=== PATIENT | female | born 1965 | race Caucasian/White ===

== ENCOUNTER 2016-08-09 10:11 | Emergency (ER) | payer OTHER ==
--- NOTE | 2016-08-09 13:00 | ED ANIMAL BITE/WOUND CHECK ---
History of Present Illness General Chief Complaint: Animal/Insect Bite Stated Complaint: ANIMAL BITE Source: patient Exam Limitations: no limitations Vital Signs & Intake/Output Vital Signs & Intake/Output Vital Signs Date Time Temp Pulse Resp B/P Pulse O2 O2 Flow FiO2 Ox Delivery Rate 08/09 1431 98.2 84 18 131/86 99 Room Air Room Air 08/09 1033 98.0 108 20 139/90 99 Room Air Allergies Coded Allergies: Sulfa (Sulfonamide Antibiotics) (Mild, HIVES 08/09/16) Triage Note: PT PRESENTS TO ER C/O OF A CAT BITE TO RIGHT WRIST. PT STATES SHE WAS TRYING TO HELP A STRAY CAT AND WAS BIT. Triage Nurses Notes Reviewed? yes Injury Environment: home Is Injury an Animal Bite? Yes Animal Type: cat Context of Animal Attack: approached animal Appearance of Animal: unknown Animal Immunization Status: unknown Observation/Capture: not captured Severity of Attack: bitten Severity: mild HPI: Patient is a 51-year-old female who presents emergency room stating that this morning while approaching a stray cat she was bit to the right wrist by an unknown And which she suffered a puncture wound in which bleeding was controlled prior to arrival. Patient has mild pain in surrounding erythema to the bite site. Patient's never received rabies vaccine. Tetanus is up-to-date. Denies any fevers Past History Travel History Traveled to [place] past 21 day No Medical History Any Pertinent Medical History? 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 No Review of Systems Review of Systems Constitutional: Reports: no symptoms. EENTM: Reports: no symptoms. Respiratory: Reports: no symptoms. Cardiovascular: Reports: no symptoms. GI: Reports: no symptoms. Genitourinary: Reports: no symptoms. Musculoskeletal: Reports: no symptoms. Skin: Reports: see HPI, erythema. Neurological/Psychological: Reports: no symptoms. Hematologic/Endocrine: Reports: no symptoms. Immunologic/Allergic: Reports: no symptoms. All Other Systems: Reviewed and Negative Physical Exam Physical Exam General Appearance: well developed/nourished, no apparent distress, comfortable Comments: Well-developed well-nourished no apparent distress. HEENT: Atraumatic, extraocular motion intact Neck: Supple, no lymphadenopathy Back: Nontender Respiratory: No respiratory distress Extremities: Neuro: Alert and oriented x3 Psych: Mood affect normal, normal memory normal judgment. Diagram Hands, Dorsum: 1) 5 mm in diameter erythematous minimal puncture wound noted with no active bleeding full active range of motion noted in wrist flexion wrist extension and radial deviation ulnar deviation, no active bleeding, no swelling Progress Differential Diagnosis: abscess, cellulitis, joint infection, tenosysnovitis Plan of Care: Current Medications Sig/Ede Start time Last Medication Dose Stop Time Status Admin Rabies Immune 2,000 UNITS ONCE ONE 08/09 1329 UNVr Globulin 08/09 1330 (Rabies Immune Globlulin Inj) Rabies Vaccine 1 SYR ONCE ONE 08/09 1329 UNVr (Rabies (Vaccine) 08/09 1330 Inj (1ML)) Surgical pen markings bordered the erythematous skin bite. Wound was cleaned with peroxide and water bacitracin and bandage was applied. Patient was updated on rabies vaccine and immunoglobin patient was artery updated on tetanus. Patient was strongly advised to adhere to discharge instructions and she will comply. (KAVEH ELLSWORTH) Departure Departure Disposition: HOME OR SELF CARE Condition: Stable Clinical Impression Primary Impression: Cat bite of right wrist Referrals: LEAH VILLAGRAN,GUZMAN Roman (PCP/Family) Additional Instructions: As discussed you have received your first dose of rabies vaccine, today is day 0. Return to the emergency room on day 3, day 7, day 14. Please begin the prescription of Augmentin as directed for the full course, this prescription is waiting at [facility]. Begin [id number] ibuprofen for pain and inflammation. If you note signs Departure Forms: Customer Survey General Discharge Information
[2016-08-09 14:31] VITALS: BP 131/86
== END 2016-08-09 14:32 ==
LOC: ERH 10:11
DX: S61.551A Open bite of right wrist, initial encounter (principal); W55.01XA Bitten by cat, initial encounter
CPT/HCPCS: 90376; 90471; 96372

== ENCOUNTER 2016-08-12 10:32 | Emergency (ER) | payer OTHER ==
[~2016-08-12] VITALS: Ht 154.9 cm; Wt 99.1 kg
--- NOTE | 2016-08-12 10:39 | ED GENERAL ADULT ---
History of Present Illness General Chief Complaint: General Adult Stated Complaint: SECOND RABIES SHOT Source: patient Exam Limitations: no limitations Vital Signs & Intake/Output Vital Signs & Intake/Output ED Intake and Output 08/13 0000 08/12 1200 Intake Total Output Total Balance Patient 218 lb Weight Allergies Coded Allergies: Sulfa (Sulfonamide Antibiotics) (Mild, HIVES 08/09/16) Reconcile Medications Amoxicillin/Clavulanate Potass (Amox-Clav 875-125 MG Tablet) 875 MG-125 MG TABLET 1 TAB PO BID ANTIBIOTIC, INFECTION (Reported) Levothyroxine Sodium (Synthroid) 137 MCG TABLET 1 TAB PO DAILY AC THYROID ( Reported) Liothyronine Sodium 5 MCG TABLET 1 TAB PO DAILY THYROID (Reported) Metformin HCl (Metformin HCl ER) 500 MG TAB.ER.24H 1 TAB PO QPM POLY ( Reported) Sertraline HCl 100 MG TABLET 1 TAB PO DAILY DEPRESSION (Reported) Triage Nurses Notes Reviewed? yes Onset: Abrupt Duration: day(s):, constant Timing: recent history No Modifying Factors: none HPI: 51-year-old female comes into emergency room for second rabies vaccine. Patient had been bitten by a stray cat on her right wrist. Patient has no redness or swelling or discharge. Patient denies any other associated symptoms. Patient is just here for second rabies vaccine. no pain. (MARCELA NEWELL) Past History Travel History Traveled to [place] past 21 day No Medical History Any Pertinent Medical History? 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 No (MARCELA NEWELL) Review of Systems Review of Systems Constitutional: Reports: no symptoms. EENTM: Reports: no symptoms. Respiratory: Reports: no symptoms. Cardiovascular: Reports: no symptoms. GI: Reports: no symptoms. Genitourinary: Reports: no symptoms. Musculoskeletal: Reports: no symptoms. Skin: Reports: no symptoms. Neurological/Psychological: Reports: no symptoms. Hematologic/Endocrine: Reports: no symptoms. Immunologic/Allergic: Reports: no symptoms. All Other Systems: Reviewed and Negative (MARCELA NEWELL) Physical Exam Physical Exam General Appearance: well developed/nourished, no apparent distress, alert Head: atraumatic, normal appearance Eyes: Bilateral: normal appearance. Ears, Nose, Throat: normal ENT inspection, hearing grossly normal Neck: normal inspection Respiratory: no respiratory distress Gastrointestinal: soft Back: normal inspection Extremities: normal inspection Neurologic/Psych: awake, alert Skin: intact, normal color Core Measures ACS in differential dx? No CVA/TIA Diagnosis: No Severe Sepsis Present: No Septic Shock Present: No (MARCELA NEWELL) Progress Differential Diagnoses I considered the following diagnoses in my evaluation of the patient: Rabies vaccine, cellulitis, sepsis, abscess, Plan of Care: Current Medications Sig/Ede Start time Last Medication Dose Stop Time Status Admin Rabies Vaccine 1 SYR ONCE ONE 08/12 1045 UNVr (Rabies (Vaccine) 08/12 1046 Inj (1ML)) Initial ED EKG: none (MARCELA NEWELL) Departure Departure Disposition: HOME OR SELF CARE Condition: Stable Clinical Impression Primary Impression: Rabies exposure Referrals: LEAH VILLAGRAN,GUZMAN Roman (PCP/Family) Additional Instructions: Return as previously instructed. Return if any other concerns worsening symptoms. Please go over all results of today's visit with your primary care doctor. Contact your primary care doctor to let them know you were here in the emergency room. There may be nonspecific findings which may not be related to your visit today here in the emergency room but may require further evaluation and chronic monitoring by your primary care doctor. If you had a laceration today the chance of foreign body always remains. You should follow-up with your primary care doctor for recheck in 3-5 days for a wound check. If you had an x-ray done there is a chance that a fracture could have been missed on initial read and you should follow-up with your primary care doctor for repeat x-rays if symptoms persist. If your blood pressure was elevated here in the emergency room please have rechecked by her primary care doctor within the next 48 hours by your primary care doctor. If you were prescribed a narcotic here in the emergency room or any type of controlled substances you're not allowed to drive while taking this medication or operate any type of heavy machinery. Narcotics can make you feel lightheaded dizziness nausea and can cause constipation. You may need to picking crew supervisor a stool softener. Thank you for choosing [facility] emergency room. Please return to the emergency room immediately if you have any other concerns worsening of symptoms. Departure Forms: Customer Survey General Discharge Information (MARCELA NEWELL) PA/SENIOR DIGITAL DESIGNER Co-Sign Statement Statement: ED Attending supervision documentation- [] I saw and evaluated the patient. I have also reviewed all the pertinent lab results and diagnostic results. I agree with the findings and the plan of care as documented in the PA's/SENIOR DIGITAL DESIGNER's documentation. [X] I have reviewed the ED Record and agree with the PA's/SENIOR DIGITAL DESIGNER's documentation. [] Additions or exceptions (if any) to the PAs/SENIOR DIGITAL DESIGNER's note and plan are summarized below: [] (ARIELLA VILLAGRAN,JONI) Critical Care Note Critical Care Note Critical Care Time: non-applicable (MARCELA NEWELL)
[2016-08-12 10:41] VITALS: BP 143/83
[2016-08-12] MEDS ORDERED: AMOX-CLAV 875-1 EACH PO (10:42)
[2016-08-12] MEDS ORDERED: METFORMIN HCL500 M4 PO (10:42)
[2016-08-12] MEDS ORDERED: SYNTHROID137 MCG PO (10:42)
[2016-08-12] MEDS ORDERED: SERTRALINE HCL100 MG PO (10:42)
[2016-08-12] MEDS ORDERED: LIOTHYRONINE SO5 MC1 PO (10:43)
== END 2016-08-12 10:52 ==
LOC: ERH 10:32
DX: Z23 Encounter for immunization (principal)
CPT/HCPCS: 90471; 99281

== ENCOUNTER 2016-08-16 11:02 | Emergency (ER) | payer OTHER ==
[~2016-08-16] VITALS: Ht 157.5 cm; Wt 99.8 kg
[~2016-08-16 11:02] MED LIST: AMOX-CLAV 875-1 EACH PO; LIOTHYRONINE SO5 MC1 PO; METFORMIN HCL500 M4 PO; SERTRALINE HCL100 MG PO; SYNTHROID137 MCG PO
[2016-08-16 11:09] VITALS: BP 132/82
--- NOTE | 2016-08-16 12:00 | ED ANIMAL BITE/WOUND CHECK ---
History of Present Illness General Chief Complaint: General Adult Stated Complaint: "HERE FOR MY 3RD RABIES SHOT" Source: patient, old records Exam Limitations: no limitations Vital Signs & Intake/Output Vital Signs & Intake/Output Vital Signs Date Time Temp Pulse Resp B/P Pulse O2 O2 Flow FiO2 Ox Delivery Rate 08/16 1109 97.4 84 18 132/82 98 Room Air Allergies Coded Allergies: Sulfa (Sulfonamide Antibiotics) (Mild, HIVES 08/09/16) Reconcile Medications Amoxicillin/Clavulanate Potass (Amox-Clav 875-125 MG Tablet) 875 MG-125 MG TABLET 1 TAB PO BID ANTIBIOTIC, INFECTION (Reported) Levothyroxine Sodium (Synthroid) 137 MCG TABLET 1 TAB PO DAILY AC THYROID ( Reported) Liothyronine Sodium 5 MCG TABLET 1 TAB PO DAILY THYROID (Reported) Metformin HCl (Metformin HCl ER) 500 MG TAB.ER.24H 1 TAB PO QPM POLY ( Reported) Sertraline HCl 100 MG TABLET 1 TAB PO DAILY DEPRESSION (Reported) Triage Note: HERE FOR 3 RD RABIES SHOT Triage Nurses Notes Reviewed? yes Onset: Abrupt Duration: week(s): (1), better Timing: remote history Injury Environment: home Is Injury an Animal Bite? Yes Severity: mild Severity Numbers: 1 No Modifying Factors: none Associated Symptoms: DENIES HPI: 51-year-old female presents emergency room for evaluation for her third rabies vaccination after she was bit by a stray cat and was seen here one week ago. Patient denies any rashes redness warmth or pain to the wrist. She denies any fevers or chills she is otherwise without any complaints and there are no modifying factors or associated symptoms otherwise. Past History Travel History Traveled to [place] past 21 day No Medical History Any Pertinent Medical History? 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 No Review of Systems Review of Systems Constitutional: Reports: see HPI. All Other Systems: Reviewed and Negative Comments Review of systems: See HPI, All other systems negative. Constitutional, no chills no fever, no malaise HEENT: No visual changes no sore throat no congestion, Cardiovascular: No chest pain , no palpitation Skin,no rashes, no change in skin Respiratory: No dyspnea no cough no sputum GI: No nausea no vomiting, no diarrhea, : No dysuria Muscle skeletal: No joint pain, no back pain, no neck pain, Neurologic: No numbness, no headache Psych: No stress Heme/endocrine: No bruising no bleeding Immunology: No lymphadenopathy Physical Exam Physical Exam General Appearance: well developed/nourished, no apparent distress, alert, awake , comfortable Comments: Well-developed well-nourished patient in no apparent distress. HEENT: Atraumatic, extraocular motion intact Neck: Supple, FROM, Back: FROM, Cardiovascular: Regular rate and rhythms no murmurs Respiratory: No respiratory distress. Patient speaking in full complete sentences. Breath sounds clear to auscultation bilaterally: NO W/R/R Extremities: full range of motion Neuro: Alert and oriented x3 Skin: Warm & dry;No appreciable rash on exposed skin, no rash or tenderness noted to the bilateral upper extremities Psych: Mood affect normal, normal memory normal judgment. Progress Differential Diagnosis: cellulitis Plan of Care: Patient appears well. She will follow up for her final rabies vaccination next week she will return anytime sooner if any concerns. Departure Departure Time of Disposition: 1201 Disposition: HOME OR SELF CARE Condition: Stable Clinical Impression Primary Impression: Rabies, need for prophylactic vaccination against Referrals: LEAH VILLAGRAN,GUZMAN Roman (PCP/Family) Additional Instructions: FOLLOW UP NEXT WEEK SCHEDULED. RETURN WITH ANY CONCERNS. Departure Forms: Customer Survey General Discharge Information
== END 2016-08-16 12:04 ==
LOC: ERH 11:02
DX: Z23 Encounter for immunization (principal)
CPT/HCPCS: 90471; 99281

== ENCOUNTER 2016-08-19 17:04 | Emergency (ER) | payer OTHER ==
[~2016-08-19] VITALS: Ht 157.5 cm; Wt 99.8 kg
--- NOTE | 2016-08-19 17:59 | ED GI/GU/ABDOMINAL COMPLAINT ---
History of Present Illness General Chief Complaint: General Adult Stated Complaint: SIB G.I R/O C-DIFF Source: patient Exam Limitations: no limitations Vital Signs & Intake/Output Vital Signs & Intake/Output Vital Signs Date Time Temp Pulse Resp B/P Pulse O2 O2 Flow FiO2 Ox Delivery Rate 08/19 1940 98.5 70 20 136/69 99 Room Air 08/19 190 Room Air 08/19 1707 98.8 78 20 138/84 98 Room Air Allergies Coded Allergies: gluten (Intermediate, GI UPSET 08/19/16) lactase (From DAIRY AID) (Intermediate, GI UPSET 08/19/16) Sulfa (Sulfonamide Antibiotics) (Mild, HIVES 08/19/16) amoxicillin (From AUGMENTIN) (SHOOTING BLOODY DIARRHEA 08/19/16) clavulanic acid (From AUGMENTIN) (SHOOTING BLOODY DIARRHEA 08/19/16) Reconcile Medications Amoxicillin/Clavulanate Potass (Amox-Clav 875-125 MG Tablet) 875 MG-125 MG TABLET 1 TAB PO BID ANTIBIOTIC, INFECTION (Reported) Levothyroxine Sodium (Synthroid) 137 MCG TABLET 1 TAB PO DAILY AC THYROID ( Reported) Liothyronine Sodium 5 MCG TABLET 1 TAB PO DAILY THYROID (Reported) Metformin HCl (Metformin HCl ER) 500 MG TAB.ER.24H 1 TAB PO QPM POLY ( Reported) Sertraline HCl 100 MG TABLET 1 TAB PO DAILY DEPRESSION (Reported) Triage Note: TRIAGE: PT TO ER C/C BLOODY DIARRHEA WITH MUCOUS SINCE THIS MORNING. HAS BEEN ON ABX S/P CAT BITE. HAS BEEN HERE 3 X FOR SAME FOR RABIES SHOTS WELL. STATES PMD SENT HER TO ER TO R/O CDIF. Triage Nurses Notes Reviewed? yes ? N Is pt currently ? No HPI: Patient presents for evaluation of multiple episodes of bloody diarrhea after a course of Augmentin for prophylaxis of a cat bite. Patient states initially she began having loose bowel movements a few days ago but this morning had an abrupt onset of frequent bloody bowel movements with mucus. She is also experiencing a lower cramping abdominal pain but denies any associated fever. (HAM VILLAGRAN,BRANDON Ponce) Past History Travel History Traveled to [place] past 21 day No Medical History Any Pertinent Medical History? 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 No (HAM VILLAGRAN,BRANDON Ponce) Review of Systems Review of Systems Constitutional: Reports: no symptoms. EENTM: Reports: no symptoms. Respiratory: Reports: no symptoms. Cardiovascular: Reports: no symptoms. GI: Reports: see HPI. Genitourinary: Reports: no symptoms. Musculoskeletal: Reports: no symptoms. Skin: Reports: no symptoms. Neurological/Psychological: Reports: no symptoms. Hematologic/Endocrine: Reports: no symptoms. Immunologic/Allergic: Reports: no symptoms. All Other Systems: Reviewed and Negative (HAM VILLAGRAN,BRANDON Ponce) Physical Exam Physical Exam Gastrointestinal: see below Comments: Gen.: Well-nourished, well-developed, no acute respiratory distress. Head: Normocephalic, atraumatic. Eyes: Normal inspection bilaterally Ears: Normal inspection bilaterally Nose: Normal inspection Throat/mouth : Moist mucosa Neck: Supple, full range of motion, no goiter Heart: Regular rate and rhythm, no murmurs rubs or gallops Lungs: Clear to auscultation bilaterally with normal air entry Chest: Nontender Back: Normal range of motion Abdomen: Soft, diffuse tenderness without rebound or guarding, nondistended, normal bowel sounds Extremities: Normal range of motion grossly, equal radial pulses, no cyanosis clubbing or edema Neurologic: Cranial nerves grossly intact, speech is clear Skin: warm and dry Psychiatric: Calm, cooperative, no apparent delusions or hallucinations Core Measures ACS in differential dx? No Severe Sepsis Present: No Septic Shock Present: No (HAM VILLAGRAN,BRANDON Ponce) Progress Differential Diagnosis: ANTIBIOTIC ASSOCIATED DIARRHEA, c. DIFFICILE COLITIS, INFLAMMATORY BOWEL DISEASE, IRRITABLE BOWEL SYNDROME Plan of Care: Orders Procedure Date/time Status CULTURE,STOOL 08/19 1851 Active C.DIFFICILE 08/19 185 Active URINALYSIS 08/19 175 Complete LIPASE 08/19 175 Complete HUMAN BETA HCG SCREEN 08/19 175 Complete COMPREHENSIVE METABOLIC PANEL 08/19 175 Complete CBC WITHOUT DIFFERENTIAL 08/19 1758 Complete Laboratory Tests 08/19/161954: Urine Color STRAW, Urine Clarity CLEAR, Urine pH 6.5, Ur Specific [place] <= 1.005, Urine Protein NEG, Urine Ketones NEG, Urine Nitrite NEG, Urine Bilirubin NEG, Urine Urobilinogen 0.2, Ur Leukocyte Esterase NEG, Ur Microscopic SEDIMENT EXAMINED, Urine RBC 3-5, Urine WBC RARE, Ur Epithelial Cells MOD H, Urine Hemoglobin MOD H, Urine Glucose NEG 08/19/16 181: Anion Gap 11, Estimated GFR > 60, BUN/Creatinine Ratio 21.4, Glucose 109 H, Calcium 9.8, Total Bilirubin 0.7, AST 28, ALT 34, Alkaline Phosphatase 79, Total Protein 7.4, Albumin 4.2, Globulin 3.2, Albumin/Globulin Ratio 1.3, Lipase 57, Total Beta HCG NEGATIVE, CBC w Diff NO MAN DIFF REQ, RBC 5.08, MCV 85.0, MCH 29.1, RDW 13.4, MPV 7.8, Gran % 92.4 H, Lymphocytes % 5.7 L, Monocytes % 1.6 L, Eosinophils % 0, Basophils % 0.3, Absolute Granulocytes 19.7 H, Absolute Lymphocytes 1.2, Absolute Monocytes 0.3, Absolute Eosinophils 0, Absolute Basophils 0.1, PUBS MCHC 34.2 Microbiology 08/19 1854 STOOL: Clostridium difficile Toxin A & B - RECD 08/19 1854 STOOL: Stool Culture - RECD Initial ED EKG: none Comments: 08/19/2016 6:57:09 PM patient signed out to Dr. Ponce. (HAM VILLAGRAN,BRANDON Ponce) Diagnostic Imaging: Viewed by Me: CT Scan. Discussed w/RAD: CT Scan. Radiology Impression: PATIENT: DILIP NICHOLAS PRESENT AGE : 51 PATIENT ACCOUNT NO: [id number] : 67 LOCATION: [facility] ORDERING PHYSICIAN: BRANDON CHEEK MD SERVICE DATE: 08/19/16 EXAM TYPE: CAT - CT ABD & PELVIS W IV CONTRAST EXAMINATION: CT ABDOMEN AND PELVIS WITH CONTRAST CLINICAL INFORMATION: Status post treatment with Augmentin, bloody diarrhea, colitis. COMPARISON: None. TECHNIQUE: Multidetector volumetric imaging was performed of the abdomen and pelvis before and after the IV administration of 95 mL of Optiray 320 intravenous contrast. Sagittal and coronal reformatted images were obtained on the technologist's workstation. DLP: 726.25 mGy-cm. FINDINGS: LUNG BASES: The visualized lung bases are unremarkable. LIVER, GALLBLADDER, AND BILIARY TREE: The liver is normal in size, shape, and attenuation. There is a 10 mm hypodense lesion in the lateral aspect of right lobe of liver as seen on axial image 17 of series 2. It cannot be further evaluated due to the small size. The gallbladder is absent, prior cholecystectomy. The CBD is unremarkable considering postcholecystectomy status. PANCREAS: Unremarkable. SPLEEN: Unremarkable. ADRENAL GLANDS: Unremarkable. KIDNEYS AND URETERS: The kidneys are normal in size, shape, and attenuation. No hydronephrosis, hydroureter, or calculi seen. No perinephric stranding. BLADDER: Unremarkable. GASTROINTESTINAL TRACT: The stomach, duodenum and small bowel are unremarkable. The colon is not dilated. There is abnormal mucosal enhancement and submucosal edema with mild pericolonic fat stranding involving the transverse colon and descending colon and proximal sigmoid colon. Findings represent acute colitis. There is no pericolonic collection or sign of perforation. The appendix is visualized and within normal limits. There is no free fluid or free air within the abdomen or pelvis. ABDOMINAL WALL: No significant hernia is appreciated. LYMPH NODES: There is no retroperitoneal adenopathy. A 1.7 cm mesenteric lymph node is seen, axial image 50 of series 2 and coronal image 42 and sagittal image 83. VASCULAR: Unremarkable. PELVIC VISCERA: Uterus and ovaries are unremarkable based on CT appearance. OSSEOUS STRUCTURES: Unremarkable. IMPRESSION: 1. Acute colitis involving the transverse colon, descending colon and part of the sigmoid colon. No pericolonic collection or sign of perforation. There is a prominent mesenteric lymph node. 2. Prior cholecystectomy. 3. A 10 mm hepatic hypodense lesion in the lateral segment of right lobe, too small to further characterize. DICTATED BY: LILLY VELASCO MD DATE/TIME DICTATED:08/19/161938 TELETRAY OPERATOR:PAYAL DATE/TIME TRANSCRIBED:08/19/161938 CONFIDENTIAL, DO NOT COPY WITHOUT APPROPRIATE AUTHORIZATION. <Electronically signed in Other Vendor System> SIGNED BY: LILLY VELASCO MD 08/19/162015 Comments: No relief of pain from the Levsin. Pain is 8 out of 10 and is crampy in nature. Pain worsened just prior to having a bowel movement and then it decreases but doesn't subside. Will try IV Toradol and will start po Flagyl. Patient advised that while on the Flagyl she cannot drink alcohol Patient is still having significant abdominal cramps. Discussed with the patient and her the possibility of staying in the hospital however the patient wants to go home. Patient promises to return if her pain worsens. (NICOLE VILLAGRAN,GUZMAN Rondon) Departure Departure Condition: Stable Referrals: LEAH VILLAGRAN,GUZMAN Roman (PCP/Family) Departure Forms: Customer Survey General Discharge Information (HAM VILLAGRAN,BRANDON Ponce) Departure Disposition: HOME OR SELF CARE Clinical Impression Primary Impression: Colitis Additional Instructions: Drink plenty of fluids. Take Flagyl as prescribed. Take Levsin and Motrin as needed for the pain. Return if symptoms worsen or for any concerns. Prescriptions: Current Visit Scripts Metronidazole (Flagyl) 1 TAB PO BID #20 TAB Hyoscyamine (Levsin) 1 TAB PO Q4 PRN ABDOMINAL PAIN #20 TAB (NICOLE VILLAGRAN,GUZMAN Rondon)
[2016-08-19 18:46] LABS: ABSOLUTE BASOPHIL COUNT 0.1 /CUMM (0.0-0.2); ABSOLUTE EOSINOPHIL COUNT 0 /CUMM (0.0-0.7); ABSOLUTE GRANULOCYTE CT 19.7 /CUMM (1.4-6.5); ABSOLUTE LYMPH COUNT 1.2 /CUMM (1.2-3.4); ABSOLUTE MONOCYTE COUNT 0.3 /CUMM (0.10-0.60); BASOPHIL % 0.3 % (0.0-2.0); EOSINOPHIL % 0 % (0-5); HEMATOCRIT 43.2 % (37-47); MEAN CORPUSCULAR HGB 29.1 PG (27.0-31.0); MEAN CORPUSCULAR HGB CONC 34.2 G/DL (33.0-37.0); MEAN PLATELET VOLUME 7.8 FL (7.4-10.4); PLATELET COUNT 410 /CUMM (130-400); RBC DISTRIBUTION WIDTH 13.4 % (11.5-14.5); RED BLOOD CELL CT 5.08 /CUMM (4.20-5.40); WHITE BLOOD CELL COUNT 21.3 /CUMM (4.8-10.8)
[2016-08-19 18:48] LABS: GRANULOCYTE % 92.4 % (42.2-75.2)
--- NOTE | 2016-08-19 20:16 | CT SCAN REPORT ---
EXAMINATION: CT ABDOMEN AND PELVIS WITH CONTRAST CLINICAL INFORMATION: Status post treatment with Augmentin, bloody diarrhea, colitis. COMPARISON: None. TECHNIQUE: Multidetector volumetric imaging was performed of the abdomen and pelvis before and after the IV administration of 95 mL of Optiray 320 intravenous contrast. Sagittal and coronal reformatted images were obtained on the technologist's workstation. DLP: 726.25 mGy-cm. FINDINGS: LUNG BASES: The visualized lung bases are unremarkable. LIVER, GALLBLADDER, AND BILIARY TREE: The liver is normal in size, shape, and attenuation. There is a 10 mm hypodense lesion in the lateral aspect of right lobe of liver as seen on axial image 17 of series 2. It cannot be further evaluated due to the small size. The gallbladder is absent, prior cholecystectomy. The CBD is unremarkable considering postcholecystectomy status. PANCREAS: Unremarkable. SPLEEN: Unremarkable. ADRENAL GLANDS: Unremarkable. KIDNEYS AND URETERS: The kidneys are normal in size, shape, and attenuation. No hydronephrosis, hydroureter, or calculi seen. No perinephric stranding. BLADDER: Unremarkable. GASTROINTESTINAL TRACT: The stomach, duodenum and small bowel are unremarkable. The colon is not dilated. There is abnormal mucosal enhancement and submucosal edema with mild pericolonic fat stranding involving the transverse colon and descending colon and proximal sigmoid colon. Findings represent acute colitis. There is no pericolonic collection or sign of perforation. The appendix is visualized and within normal limits. There is no free fluid or free air within the abdomen or pelvis. ABDOMINAL WALL: No significant hernia is appreciated. LYMPH NODES: There is no retroperitoneal adenopathy. A 1.7 cm mesenteric lymph node is seen, axial image 50 of series 2 and coronal image 42 and sagittal image 83. VASCULAR: Unremarkable. PELVIC VISCERA: Uterus and ovaries are unremarkable based on CT appearance. OSSEOUS STRUCTURES: Unremarkable. IMPRESSION: 1. Acute colitis involving the transverse colon, descending colon and part of the sigmoid colon. No pericolonic collection or sign of perforation. There is a prominent mesenteric lymph node. 2. Prior cholecystectomy. 3. A 10 mm hepatic hypodense lesion in the lateral segment of right lobe, too small to further characterize.
[2016-08-19] MEDS ORDERED: FLAGYL500 MG PO (22:03)
[2016-08-19] MEDS ORDERED: LEVSIN0.125 M1 PO (22:03)
[2016-08-19 22:09] VITALS: BP 96/54
== END 2016-08-19 22:26 ==
LOC: ERH 17:04
PROVIDERS: Emergency Medicine
DX: K52.9 Noninfective gastroenteritis and colitis, unspecified (principal)
CPT/HCPCS: 74177; 81001; 87045; 96374; J1885

== ENCOUNTER 2016-08-23 10:26 | Emergency (ER) | payer OTHER ==
[~2016-08-23] VITALS: Ht 154.9 cm; Wt 96.6 kg
[~2016-08-23 10:26] MED LIST changes: +FLAGYL500 MG PO; +LEVSIN0.125 M1 PO
[2016-08-23 10:39] VITALS: BP 108/73
--- NOTE | 2016-08-23 11:06 | ED GENERAL ADULT ---
History of Present Illness General Chief Complaint: General Adult Stated Complaint: 4TH RABIES SHOT Source: patient, old records Exam Limitations: no limitations Vital Signs & Intake/Output Vital Signs & Intake/Output Vital Signs Date Time Temp Pulse Resp B/P Pulse O2 O2 Flow FiO2 Ox Delivery Rate 08/23 1039 97.0 85 20 108/73 97 Room Air Allergies Coded Allergies: gluten (Intermediate, GI UPSET 08/19/16) lactase (From DAIRY AID) (Intermediate, GI UPSET 08/19/16) Sulfa (Sulfonamide Antibiotics) (Mild, HIVES 08/19/16) amoxicillin (From AUGMENTIN) (SHOOTING BLOODY DIARRHEA 08/19/16) clavulanic acid (From AUGMENTIN) (SHOOTING BLOODY DIARRHEA 08/19/16) Reconcile Medications Amoxicillin/Clavulanate Potass (Amox-Clav 875-125 MG Tablet) 875 MG-125 MG TABLET 1 TAB PO BID ANTIBIOTIC, INFECTION (Reported) Hyoscyamine (Levsin) 0.125 MG TABLET 1 TAB PO Q4 PRN ABDOMINAL PAIN Levothyroxine Sodium (Synthroid) 137 MCG TABLET 1 TAB PO DAILY AC THYROID ( Reported) Liothyronine Sodium 5 MCG TABLET 1 TAB PO DAILY THYROID (Reported) Metformin HCl (Metformin HCl ER) 500 MG TAB.ER.24H 1 TAB PO QPM POLY ( Reported) Metronidazole (Flagyl) 500 MG TABLET 1 TAB PO BID COLITIS Sertraline HCl 100 MG TABLET 1 TAB PO DAILY DEPRESSION (Reported) Triage Note: PT HERE FOR 4TH RABIES VACCINE Triage Nurses Notes Reviewed? yes HPI: here for her fourth and final rabies injection. She has no complaints regard to this. She still has mild abdominal discomfort due to her colitis, she is eating and drinking fair amounts. No vomiting no fever (TIMOTHY COLEMAN) Past History Travel History Traveled to [place] past 21 day No Medical History Any Pertinent Medical History? 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 No (TIMOTHY COLEMAN) Review of Systems Review of Systems Constitutional: Reports: see HPI. EENTM: Reports: no symptoms. Respiratory: Reports: no symptoms. Cardiovascular: Reports: no symptoms. GI: Reports: see HPI. Genitourinary: Reports: no symptoms. Musculoskeletal: Reports: no symptoms. Skin: Reports: no symptoms. Neurological/Psychological: Reports: no symptoms. Hematologic/Endocrine: Reports: no symptoms. Immunologic/Allergic: Reports: no symptoms. All Other Systems: Reviewed and Negative (TIMOTHY COLEMAN) Physical Exam Physical Exam General Appearance: well developed/nourished Comments: Well-developed well-nourished no apparent distress. HEENT: Atraumatic, extraocular motion intact Neck: Supple, no lymphadenopathy Back: Nontender Respiratory: No respiratory distress Extremities: No edema, full range of motion Neuro: Alert and oriented x3 Psych: Mood affect normal, normal memory normal judgment. Skin: Warm and dry, no rash on exposed skin Core Measures ACS in differential dx? No CVA/TIA Diagnosis: No Severe Sepsis Present: No Septic Shock Present: No (TIMOTHY COLEMAN) Progress Differential Diagnoses I considered the following diagnoses in my evaluation of the patient: / Plan of Care: Rabies vaccination given, follow-up when necessary Initial ED EKG: none (TIMOTHY COLEMAN) Departure Departure Disposition: HOME OR SELF CARE Condition: Stable Clinical Impression Primary Impression: Rabies, need for prophylactic vaccination against Referrals: LEAH VILLAGRAN,GUZMAN Roman (PCP/Family) Additional Instructions: Return with any concerns Departure Forms: Customer Survey General Discharge Information (TIMOTHY COLEMAN) PA/SHED BOSS Co-Sign Statement Statement: ED Attending supervision documentation- [] I saw and evaluated the patient. I have also reviewed all the pertinent lab results and diagnostic results. I agree with the findings and the plan of care as documented in the PA's/SHED BOSS's documentation. [X] I have reviewed the ED Record and agree with the PA's/SHED BOSS's documentation. [] Additions or exceptions (if any) to the PAs/SHED BOSS's note and plan are summarized below: [] (NICOLE VILLAGRAN,GUZMAN Rondon) Critical Care Note Critical Care Note Critical Care Time: non-applicable (TIMOTHY COLEMAN)
== END 2016-08-23 11:12 ==
LOC: ERH 10:26
DX: Z23 Encounter for immunization (principal)
CPT/HCPCS: 90471; 99281